=== PATIENT | female | born 2000 | race African-American/Black ===

== ENCOUNTER 2021-12-18 09:35 | Emergency (ER) | payer OTHER ==
[~2021-12-18] VITALS: Ht 160 cm; Wt 69.0 kg
[2021-12-18] MEDS ORDERED: IBUPROFEN 600MG TABLET PO ONE (10:15)
[2021-12-18] MEDS ORDERED: METH-653 MT (10:17)
[2021-12-18] MEDS ORDERED: IBUP-2029 MT (10:17)
[2021-12-18 10:26] VITALS: BP 127/75
== END 2021-12-18 10:25 | disposition home or self-care (01) ==
LOC: ER 09:35
DX: M54.59 Other low back pain (principal); M25.512 Pain in left shoulder; M54.2 Cervicalgia; V44.6XXA Car passenger injured in collision with heavy transport vehicle or bus in traffic accident, initial encounter; Y93.89 Activity, other specified; Y92.488 Other paved roadways as the place of occurrence of the external cause
CPT/HCPCS: 99282; 99283

== ENCOUNTER 2021-12-27 11:58 | Emergency (ER) | payer OTHER ==
[~2021-12-27] VITALS: Ht 160 cm; Wt 870.0 kg
[~2021-12-27 11:58] MED LIST: IBUP-2029 MT; METH-653 MT
[2021-12-27 12:01] VITALS: BP 143/78
[2021-12-27] MEDS ORDERED: ONDANSETRON 4MG ODT PO ONE (12:15)
[2021-12-27 12:55] LABS: BASOPHILS % 0.8 % (0.0-2.0); EOSINOPHILS % 1.8 % (0.0-5.0); HEMATOCRIT. 39.8 % (36.0-48.0); HEMOGLOBIN. 12.8 g/dL (12.0-16.0); LYMPHOCYTES % 27.9 % (20.0-50.0); MEAN CORPUSCULAR HEMOGLOBIN 25.1 pg (28.0-32.0); MEAN PLATELET VOLUME 8.2 fl (7.4-10.4); MONOCYTES % 8.3 % (2.0-8.0); NEUTROPHILS % 61.2 % (40.0-76.0); PLATELET 170 x1000/uL (130-400); RED CELL DISTRIBUTION WIDTH 14.5 % (11.6-14.6)
[2021-12-27 13:01] LABS: CHLORIDE 110 mEq/L (98-107)
[2021-12-27 13:41] LABS: HCG SCREEN NEGATIVE
[2021-12-27] MEDS ORDERED: ONDA8TAB13 MT (13:55)
== END 2021-12-27 14:11 | disposition home or self-care (01) ==
LOC: ER 11:58
DX: R11.2 Nausea with vomiting, unspecified (principal)
CPT/HCPCS: 36415; 80048; 80076; 84703; 85025; 99283; Q0162

== ENCOUNTER 2022-03-13 10:39 | Emergency (ER) | payer OTHER ==
[~2022-03-13] VITALS: Ht 160 cm; Wt 69.0 kg
[~2022-03-13 10:39] MED LIST changes: +ONDA8TAB13 MT
[2022-03-13] MEDS ORDERED: KETOROLAC 60MG/2ML VIAL IM STA (10:50)
[2022-03-13] MEDS ORDERED: ONDANSETRON 4MG ODT PO STA (10:50)
[2022-03-13 11:13] LABS: BASOPHILS % 0.5 % (0.0-2.0); EOSINOPHILS % 1.4 % (0.0-5.0); HEMATOCRIT. 41.2 % (36.0-48.0); HEMOGLOBIN. 13.2 g/dL (12.0-16.0); LYMPHOCYTES % 29.9 % (20.0-50.0); MEAN CORPUSCULAR HEMOGLOBIN 25.2 pg (28.0-32.0); MEAN CORPUSCULAR VOLUME 78.7 fL (81.0-99.0); MEAN PLATELET VOLUME 8.5 fl (7.4-10.4); MONOCYTES % 6.8 % (2.0-8.0); NEUTROPHILS % 61.4 % (40.0-76.0); PLATELET 168 x1000/uL (130-400); RED BLOOD CELL COUNT 5.24 mill/uL (4.2-5.4); RED CELL DISTRIBUTION WIDTH 13.7 % (11.6-14.6)
[2022-03-13 11:19] LABS: CHLORIDE 110 mEq/L (98-107)
[2022-03-13 11:35] VITALS: BP 145/99
== END 2022-03-13 13:11 | disposition home or self-care (01) ==
LOC: ER 10:39
DX: G43.909 Migraine, unspecified, not intractable, without status migrainosus (principal); R11.2 Nausea with vomiting, unspecified
CPT/HCPCS: 36415; 80053; 83690; 85025; 96372; 99283; J1885; Q0162

== ENCOUNTER 2022-09-19 12:59 | Emergency (ER) | payer OTHER ==
[~2022-09-19] VITALS: Ht 160 cm; Wt 68.0 kg
[2022-09-19 13:08] VITALS: BP 131/93
== END 2022-09-19 20:45 | disposition left against medical advice (07) ==
LOC: ER 12:59
DX: Z53.21 Procedure and treatment not carried out due to patient leaving prior to being seen by health care provider (principal)

== ENCOUNTER 2024-09-02 15:34 | Emergency (ER) | payer OTHER ==
[~2024-09-02] VITALS: Ht 160 cm; Wt 66.0 kg
[~2024-09-02 15:34] MED LIST changes: +ONDA-241 MT; -ONDA8TAB13 MT
[2024-09-02 15:45] VITALS: TEMP 98.7; O2SAT 100
[2024-09-02] MEDS: METOCLOPRAMIDE HCL 10MG TABLET PO ONE (16:30)
[2024-09-02 16:36] LABS: HCG SCREEN POSITIVE
[2024-09-02 17:17] LABS: CLARITY URINE CLOUDY (CLEAR); COLOR URINE YELLOW (YELLOW); GLUCOSE URINE NEGATIVE (NEGATIVE); KETONES URINE TRACE (NEGATIVE); LEUKOCYTE ESTERASE URINE TRACE (NEGATIVE); NITRITE URINE NEGATIVE (NEGATIVE); OCCULT BLOOD URINE NEGATIVE (NEGATIVE); PH URINE 8.5 (4.5-8.0); PROTEIN URINE TRACE (NEGATIVE)
[2024-09-02 18:08] LABS: RBC URINE 0-2 /hpf (0-2); SQUAMOUS EPITHELIAL CELL URINE 1+ /lpf (RARE/1+)
[2024-09-02 18:09] LABS: BACTERIA URINE 3+; WBC URINE 0-2 /hpf (0-2)
[2024-09-02] MEDS ORDERED: PREN1TAB22 MT (18:35)
[2024-09-02 18:58] VITALS: BP 120/66; PULSE 80; RESP 18; O2SAT 100
== END 2024-09-02 18:59 | disposition home or self-care (01) ==
LOC: ER 15:34
DX: O21.9 Vomiting of pregnancy, unspecified (principal); R10.2 Pelvic and perineal pain; Z3A.01 Less than 8 weeks gestation of pregnancy
CPT/HCPCS: 99284; 76801; 81003; 81025; 84703; 84702; 36415; 76817; J8597